=== PATIENT | female | born 1960 | race Caucasian/White ===

== ENCOUNTER 2020-09-24 09:26 | Emergency (ER) | payer OTHER ==
[2020-09-24 09:54] LABS: HEMATOCRIT 41.7 % (37.0-47.0); HEMOGLOBIN 13.5 g/dl (12.0-16.0); IMMATURE GRANULOCYTES 0.2 % (0.0-5.0); MEAN CELL VOLUME 98.1 fL CALC (80.0-100.0); MEAN CORPUSCULAR HGB 31.8 pG CALC (26.0-32.0); MEAN CORPUSCULAR HGB CONC 32.4 g/dL CAL (32.0-36.0); NEUT# 3.11 thou/uL (2.00-7.15); RED BLOOD COUNT 4.25 mill/uL (4.20-5.60); RED CELL DISTRI WIDTH 12.1 % (11.5-15.5)
[2020-09-24 09:55] LABS: GFR > 60 ML/MIN (>=60 (CALC)); GFR FOR AFR.AMER. > 60 ML/MIN (>=60 (CALC))
[2020-09-24 10:12] LABS: ALKALINE PHOSPHATASE 174 u/l (38-126); ANION GAP 14 (6-22 (CALC)); BILIRUBIN, TOTAL 0.7 mg/dL (0.0-1.4); BUN 19 mg/dL (8-23); BUN/CREATININE RATIO 33 (12-20 (CALC)); CARBON DIOXIDE 23 mmol/l (22-30); CHLORIDE 103 mmol/l (95-108); CREATININE 0.6 mg/dL (0.5-1.0); GFR > 60 ML/MIN (>=60 (CALC)); GFR FOR AFR.AMER. > 60 ML/MIN (>=60 (CALC)); POTASSIUM 4.2 mmol/l (3.5-5.1); SGOT/AST 60 u/l (9-36); SODIUM 136 mmol/l (137-146); TOTAL PROTEIN 7.9 g/dL (6.3-8.2)
[2020-09-24 10:24] LABS: URINE BILIRUBIN - DIPSTICK NEGATIVE (NEGATIVE); URINE BLOOD DIPSTICK TRACE-INTACT (NEGATIVE); URINE COLOR YELLOW; URINE GLUCOSE - DIPSTICK NEGATIVE (NEGATIVE); URINE KETONE NEGATIVE (NEGATIVE); URINE LEUK ESTERASE NEGATIVE (NEGATIVE); URINE PH 5.5 (4.5-8.0); URINE PROTEIN - DIPSTICK NEGATIVE (NEG-TRACE); URINE UROBILINOGEN - DIPSTICK 0.2 E.U./dL (0.2)
[2020-09-24 10:25] LABS: URINE NITRITE - DIPSTICK NEGATIVE (Negative)
[2020-09-24] MEDS ORDERED: METRONIDAZOL500 MG PO ×2 (11:05→15:53)
[2020-09-24] MEDS ORDERED: CIPROFLOXACN500 MG PO ×2 (11:05→15:53)
[2020-09-24] MEDS ORDERED: ZOFRAN4 M1 PO ×2 (11:07→15:53)
[2020-09-24 11:37] VITALS: BP 158/90
[2020-09-25] MEDS ORDERED: METRONIDAZOL500 MG PO (15:08)
[2020-09-25] MEDS ORDERED: ZOFRAN4 M1 PO (15:08)
[2020-09-25] MEDS ORDERED: CIPROFLOXACN500 MG PO (15:08)
== END 2020-09-24 11:43 | disposition home or self-care (01) | DRG 392 ==
LOC: ED 09:26
PROVIDERS: Family Medicine
DX: K52.9 Noninfective gastroenteritis and colitis, unspecified (principal)
CPT/HCPCS: Q9967

== ENCOUNTER 2021-06-19 06:46 | Day surgery (SDC) | payer OTHER ==
[~2021-06-19] VITALS: Ht 170.2 cm; Wt 68.9 kg
[~2021-06-19 06:46] MED LIST: B121000 MC1 PO; CIPROFLOXACN500 MG PO; METRONIDAZOL500 MG PO; MULTI VIT PO; ZOFRAN4 M1 PO
[2021-06-19 09:20] VITALS: BP 114/65
== END 2021-06-19 09:27 | disposition home or self-care (01) | DRG 951 ==
LOC: ENDO 06:46 → ORM 08:00 → ENDO 09:27
PROVIDERS: ATTEND Surgery
PROC: 0DBH8ZX Excision of Cecum, Via Natural or Artificial Opening Endoscopic, Diagnostic (ICD-10-PCS; principal; 2021-06-19)
PROC: 0DBN8ZX Excision of Sigmoid Colon, Via Natural or Artificial Opening Endoscopic, Diagnostic (ICD-10-PCS; 2021-06-19)
DX: Z12.11 Encounter for screening for malignant neoplasm of colon (principal); D12.0 Benign neoplasm of cecum; K63.5 Polyp of colon; K57.30 Diverticulosis of large intestine without perforation or abscess without bleeding; Z86.010 Personal history of colon polyps

== ENCOUNTER 2021-07-30 09:45 | Emergency (ER) | payer OTHER ==
[~2021-07-30] VITALS: Ht 170.2 cm; Wt 53.8 kg
[2021-07-30] MEDS ORDERED: TRAMADOL HYDROC50 M1 PO (12:30)
[2021-07-30 12:35] VITALS: BP 148/70
== END 2021-07-30 12:45 | disposition home or self-care (01) | DRG 605 ==
LOC: ED 09:45
DX: S40.011A Contusion of right shoulder, initial encounter (principal); S80.01XA Contusion of right knee, initial encounter; W01.0XXA Fall on same level from slipping, tripping and stumbling without subsequent striking against object, initial encounter; Y92.512 Supermarket, store or market as the place of occurrence of the external cause

== ENCOUNTER 2023-01-12 11:04 | Emergency (ER) | payer OTHER ==
[~2023-01-12] VITALS: Ht 170.2 cm; Wt 65.8 kg
[~2023-01-12 11:04] MED LIST changes: +TRAMADOL HYDROC50 M1 PO
[2023-01-12 11:12] VITALS: BP 174/111
[2023-01-12 11:15] VITALS: BP 167/98
[2023-01-12] MEDS ORDERED: LISINOPRIL10 MG PO (11:18)
[2023-01-12] MEDS ORDERED: SIMVASTATIN10 MG PO (11:18)
[2023-01-12 11:21] VITALS: BP 152/95
[2023-01-12 11:30] VITALS: BP 149/98
[2023-01-12 12:02] LABS: BASO% 0.7 % (0-3); EOS% 2.6 % (0-8); HEMATOCRIT 38.2 % (37.0-47.0); HEMOGLOBIN 12.4 g/dl (12.0-16.0); IMMATURE GRANULOCYTES 0.3 % (0.0-5.0); LYMPH% 55.9 % (15-41); MEAN CELL VOLUME 102.7 fL CALC (80.0-100.0); MEAN CORPUSCULAR HGB 33.3 pG CALC (26.0-32.0); MEAN CORPUSCULAR HGB CONC 32.5 g/dL CAL (32.0-36.0); MONO% 12.1 % (2-13); NEUT# 0.87 thou/uL (2.00-7.15); NEUT% 28.4 % (42-76); RED BLOOD COUNT 3.72 mill/uL (4.20-5.60); RED CELL DISTRI WIDTH 12.7 % (11.5-15.5)
[2023-01-12 12:07] LABS: ALBUMIN 4.1 g/dL (3.2-5.0); ALKALINE PHOSPHATASE 120 u/l (38-126); ANION GAP 13 (6-22 (CALC)); BILIRUBIN, TOTAL 0.6 mg/dL (0.02-1.3); BUN 13 mg/dL (8-23); BUN/CREATININE RATIO 21 (12-20 (CALC)); CARBON DIOXIDE 22 mmol/l (22-30); CHLORIDE 105 mmol/l (95-108); CREATININE 0.6 mg/dL (0.5-1.0); GFR FOR AFR.AMER. > 60 ML/MIN (>=60 (CALC)); GFR OTHER RACES > 60 ML/MIN (>=60 (CALC)); POTASSIUM 3.7 mmol/l (3.5-5.1); SODIUM 136 mmol/l (137-146); TOTAL PROTEIN 6.8 g/dL (6.3-8.2)
[2023-01-12 12:08] LABS: SGOT/AST 79 u/l (9-36)
[2023-01-12 12:18] LABS: CPK 46 u/l (30-135)
[2023-01-12 12:49] LABS: URINE BILIRUBIN - DIPSTICK NEGATIVE (NEGATIVE); URINE COLOR YELLOW; URINE GLUCOSE - DIPSTICK NEGATIVE (NEGATIVE); URINE KETONE Negative (NEGATIVE); URINE PH 5.5 (4.5-8.0); URINE PROTEIN - DIPSTICK NEGATIVE (NEG-TRACE); URINE SPECIFIC GRAVITY <=1.005; URINE UROBILINOGEN - DIPSTICK 0.2 E.U./dL (0.2)
[2023-01-12 12:50] LABS: URINE BLOOD DIPSTICK NEGATIVE (NEGATIVE); URINE LEUK ESTERASE NEGATIVE (NEGATIVE); URINE NITRITE - DIPSTICK NEGATIVE (Negative)
[2023-01-12] MEDS ORDERED: METHOCARBAMOL500 MG PO (13:40)
[2023-01-12] MEDS ORDERED: IBUPROFEN600 MG PO (13:40)
[2023-01-12 13:44] VITALS: BP 149/98
== END 2023-01-12 13:47 | disposition home or self-care (01) | DRG 605 ==
LOC: ED 11:04
PROVIDERS: Family Medicine
DX: S00.83XA Contusion of other part of head, initial encounter (principal); I10 Essential (primary) hypertension; W01.0XXA Fall on same level from slipping, tripping and stumbling without subsequent striking against object, initial encounter; Y93.K1 Activity, walking an animal